=== PATIENT | male | born 1970 | race Caucasian/White ===

== ENCOUNTER 2018-10-25 10:13 | Emergency (ER) | payer OTHER ==
[~2018-10-25] VITALS: Ht 188 cm; Wt 123.0 kg
[2018-10-25 10:18] VITALS: BP 156/83; PULSE 100; RESP 18; Ht 188 cm; Wt 123.0 kg
[2018-10-25] MEDS ORDERED: LIDOCAINE 1% (MDV) 20 ML INJ SC ONE (11:30)
[2018-10-25] MEDS ORDERED: ACETAMINOPHEN 325 MG TAB PO ONE (11:30)
[2018-10-25] MEDS ORDERED: IBUP-1542 PO (12:02)
--- NOTE | 2018-10-25 12:04 | ERD ---
ER Documentation Chief Complaint Chief Complaint left great ingrown toe nail x 3 months HPI 48-year-old male presents with some pain and irritation on the medial aspect of his left big nail where there is ingrown by history. Patient has a history of previous treatment 12 years ago for ingrown toenail. Denies any history of trauma. ROS All systems reviewed and are negative except as per history of present illness. Medications Home Meds Active Scripts Ibuprofen* (Motrin*) 600 Mg Tab, 600 MG PO Q6, #15 TAB Prov:KHANH BIRD MD 10/25/18 Allergies Allergies: Coded Allergies: Penicillins (Verified Allergy, Mild, 10/25/18) PMhx/Soc History of Surgery: Yes (APPENDECTOMY; BILATERAL HERNIA REPAIR) Hx Cardiac Disorders: Yes (CHF, HYPERTENSION) Hx Alcohol Use: No Hx Substance Use: No Hx Tobacco Use: No Smoking Status: Never smoker FmHx Family History: No diabetes, No coronary disease, No other Physical Exam Vitals Vital Signs Date Temp Pulse Resp B/P (MAP) Pulse Ox O2 O2 Flow FiO2 Time Delivery Rate 10/25/18 97.2 100 18 156/83 100 10:18 (107) Physical Exam Const: No acute distress Head: Atraumatic Eyes: Normal Conjunctiva ENT: Normal External Ears, Nose and Mouth. Neck: Full range of motion. No meningismus. Resp: Clear to auscultation bilaterally Cardio: Regular rate and rhythm, no murmurs Abd: Soft, non tender, non distended. Normal bowel sounds Skin: No petechiae or rashes Back: No midline or flank tenderness Ext: No cyanosis, or edema left big nail ingrown on the medial aspect. No significant redness or swelling. Neur: Awake and alert Psych: Normal Mood and Affect Results 24 hrs Current Medications Medications Dose Sig/Lucía Start Time Status Last (Trade) Ordered Route PRN Stop Time Admin Dose Reason Admin 650 mg ONCE ONCE 10/25/18 DC 10/25/18 Acetaminophen PO 11:30 10/25/18 11:58 (Tylenol 11:31 Tab) Lidocaine 20 ml ONCE ONCE 10/25/18 DC (Xylocaine SC 11:30 10/25/18 1% (Mdv) 20 11:31 ml) Procedures/MDM Patient given Tylenol for pain. Procedure note-left big toe was prepped with Betadine 3 cc lidocaine was used to perform a digital block. Anesthesia was obtained. The ingrown portion of nail was removed using clamps and scissors. Patient tolerated procedure well and the wound was dressed. Patient has no signs or symptoms of necrotizing fasciitis, infection, history to suggest fracture, dislocation, foreign body, additional complications. He will be discharged home with instructions for warm soaks, return precautions for fevers, redness, new worsening symptoms. Departure Diagnosis: Primary Impression: Ingrown toenail Condition: Stable Patient Instructions: Ingrown Toenail, Excised Additional Instructions: Recheck for worsening redness, fevers, new or worsening symptoms. KHANH BIRD MD Oct 25, 2018 12:04
== END 2018-10-25 13:12 | disposition home or self-care (01) ==
LOC: FTE 10:13
DX: L60.0 Ingrowing nail (principal); I11.0 Hypertensive heart disease with heart failure; I50.9 Heart failure, unspecified
CPT/HCPCS: 11765; Z7502; Z7610

== ENCOUNTER 2019-07-06 19:20 | Emergency (ER) | payer SELFPAY ==
[~2019-07-06 19:20] MED LIST: IBUP-1542 PO
== END 2019-07-06 20:12 | disposition left against medical advice (07) ==
LOC: E/R 19:20
DX: Z53.21 Procedure and treatment not carried out due to patient leaving prior to being seen by health care provider (principal)